=== PATIENT | female | born 1960 | race Caucasian/White ===

== ENCOUNTER 2019-03-14 16:14 | Emergency (ER) | payer OTHER, SELFPAY ==
[2019-03-14 16:19] VITALS: BP 170/97; PULSE 80; RESP 14; TEMP 37.1; O2SAT 97
--- NOTE | 2019-03-14 16:20 | W.ED.GENAD ---
Discharge Plan Disposition Patient Disposition: HOME Condition: Stable Discharge Details Chief Complaint: Laceration Clinical Impression: Laceration of left leg Primary Care Provider: China Gatica ED Provider: Elif Cortez Home Meds and New Rx's Prescriptions: No Action No Known Home Meds RF: 0 Discharge Instructions Instructions: Laceration (ED) Additional Instructions: Keep wound clean, dry, covered. Keep current dressing on for the next 24 hours. After that, may shower and wash with soap. Do not soak/submerge. Monitor for signs of infection inculding redness, warmth, drainage, increased pain, fevers/chills. If these or other new/worsening symptoms arise please seek care urgently once again. Return in 10 days for suture removal. Referrals: China Gatica [Primary Care Provider] - Discharge Data Discharge Date/Time-TO BE ENTERED AT DEPARTURE: 03/14/19 17:32 Medical Decision Making Patient 58-year-old female presenting today for evaluation of laceration she sustained to the right medial calf. Sustained this was working with metal tracey the accident cut her leg. Patient is not up-to-date on tetanus, will update this today. She denies any altered sensation. Denies other injuries from the incident. Patient has a 4.5 cm laceration into the subcutaneous tissue, curvilinear in appearance. Discussed versus benefits as well as expected procedural steps of closure. She voiced understanding and wished to proceed . Procedure note: Using standard sterile technique, the wound was first anesthetized 1% lidocaine plain. 5 cc was used. The sufficiently anesthetized the area. The wound was then copiously irrigated with sterile saline and cleansed with chlorhexidine. Wound was explored to base in a bloodless field no foreign body debris noted. Attention was then turned to closure. #7 simple interrupted stitches were placed using 5-0 nylon. Patient tolerated this well and a dry sterile bandage was placed over this. Patient I discussed wound care in depth. We discussed signs symptoms of infection when to seek care urgently once again. She will return in 10 days for suture removal. We discussed activities to avoid. All of her questions and concerns were addressed and she is agreement this plan. Tetanus was updated today. HPI General Mode of arrival: ambulatory. Date/Time Provider Initiated Documentation: 03/14/19 16:20. Limitations to Documentation: no limitations. Information obtained by: patient and RN notes reviewed. History of Present Illness 58 year old F presents to the emergency department with the chief complaint of laceration right medial calf, described as severe, with intensity rated at 9 (9.5). Quality is described as burning, and is localized to the right and lower extremity. Patient reports no radiation. Patient started experiencing this minute(s) and it has been constant. No relieving factors improve symptom(s), No exacerbating factors reported . Patient notes no other symptoms.. Patient did receive the following treatments prior to arrival, none Related Data Home Medications Medication Instructions Recorded Confirmed Unknown [No Known Home Meds] 03/14/19 03/14/19 Allergies Allergy/AdvReac Type Severity Reaction Status Date / Time No Known Allergies Allergy Unverified 03/14/19 16:23 Review of Systems Constitutional Reports as per HPI, Denies chills and Denies fever(s) Musculoskeletal Reports as per HPI Integumentary/Breasts Reports as per HPI Neurologic Reports as per HPI, Denies sensory deficit and Denies paresthesias PFS Social History Smoking/Tobacco Use Status: Never Drug use: Never Substance use type: does not use Do you feel safe at home: Yes Do you feel safe in your relationship?: Yes Exam Const General: cooperative, healthy appearing, comfortable, no acute distress and well developed Nutritional Appearance: average body habitus and well nourished Orientation: alert and awake Resp Effort & Inspection: normal respiratory effort, able to speak in complete sentences and no respiratory distress Cardio Rate: regular rate Rhythm: regular rhythm Skin Trauma: laceration (left medial knee 4.5 curvilinear laceration into subcutaneous) Neuro General: alert and awake Cognition: normal cognition Speech: speech normal Gait: normal gait Sensory Exam: no sensory deficits noted Extrem Left lower extremity: full ROM, normal capillary refill and no joint enlargement; abnormal to inspection (laceration as above) and no edema Psych Appearance: grossly normal and well kempt Mental Status: mental status grossly normal Speech and Movement: speech and movement normal
--- NOTE | 2019-03-14 16:34 | ED.GENADUL_ITS ---
Discharge Plan Disposition Patient Disposition: HOME Condition: Stable Discharge Details Chief Complaint: Laceration Clinical Impression: Laceration of left leg Primary Care Provider: China Gatica ED Provider: Elif Cortez Home Meds and New Rx's Prescriptions: No Action No Known Home Meds RF: 0 Discharge Instructions Instructions: Laceration (ED) Additional Instructions: Keep wound clean, dry, covered. Keep current dressing on for the next 24 hours. After that, may shower and wash with soap. Do not soak/submerge. Monitor for signs of infection inculding redness, warmth, drainage, increased pain, fevers/chills. If these or other new/worsening symptoms arise please seek care urgently once again. Return in 10 days for suture removal. Referrals: China Gatica [Primary Care Provider] - Discharge Data Discharge Date/Time-TO BE ENTERED AT DEPARTURE: 03/14/19 17:32 Medical Decision Making Patient 58-year-old female presenting today for evaluation of laceration she sustained to the right medial calf. Sustained this was working with metal tracey the accident cut her leg. Patient is not up-to-date on tetanus, will update this today. She denies any altered sensation. Denies other injuries from the incident. Patient has a 4.5 cm laceration into the subcutaneous tissue, curvilinear in appearance. Discussed versus benefits as well as expected procedural steps of closure. She voiced understanding and wished to proceed . Procedure note: Using standard sterile technique, the wound was first anesthetized 1% lidocaine plain. 5 cc was used. The sufficiently anesthetized the area. The wound was then copiously irrigated with sterile saline and cleansed with chlorhexidine. Wound was explored to base in a bloodless field no foreign body debris noted. Attention was then turned to closure. #7 simple interrupted stitches were placed using 5-0 nylon. Patient tolerated this well and a dry sterile bandage was placed over this. Patient I discussed wound care in depth. We discussed signs symptoms of infection when to seek care urgently once again. She will return in 10 days for suture removal. We discussed activities to avoid. All of her questions and concerns were addressed and she is agreement this plan. Tetanus was updated today. HPI General Mode of arrival: ambulatory . Date/Time Provider Initiated Documentation: 03/14/19 16:20 . Limitations to Documentation: no limitations . Information obtained by: patient and RN notes reviewed . History of Present Ill pilo 58 year old F presents to the emergency department with the chief complaint of laceration right medial calf, described as severe, with intensity rated at 9 (9.5). Quality is described as burning, and is localized to the right and lower extremity. Patient reports no radiation. Patient started experiencing this minute(s) and it has been constant. No relieving factors improve symptom(s), No exacerbating factors reported . Patient notes no other symptoms.. Patient did receive the following treatments prior to arrival, none Related Data Home Medications Medication Instructions Recorded Confirmed Unknown [No Known Home Meds] 03/14/19 03/14/19 Allergies Allergy/AdvReac Type Severity Reaction Status Date / Time No Known Allergies Allergy Unverified 03/14/19 16:23 Review of Systems Constitutional Reports as per HPI, Denies chills and Denies fever(s) Musculoskeletal Reports as per HPI Integumentary/Breasts Reports as per HPI Neurologic Reports as per HPI, Denies sensory deficit and Denies paresthesias [facility] Social History Smoking/Tobacco Use Status: Never Drug use: Never Substance use type: does not use Do you feel safe at home: Yes Do you feel safe in your relationship?: Yes Exam Const General: cooperative, healthy appearing, comfortable, no acute distress and well developed Nutritional Appearance: average body habitus and well nourished Orientation: alert and awake Resp Effort & Inspection: normal respiratory effort, able to speak in complete sentences and no respiratory distress Cardio Rate: regular rate Rhythm: regular rhythm Skin Trauma: laceration (left medial knee 4.5 curvilinear laceration into subcutaneous) Neuro General: alert and awake Cognition: normal cognition Speech: speech normal Gait: normal gait Sensory Exam: no sensory deficits noted Extrem Left lower extremity: full ROM, normal capillary refill and no joint enlargement; abnormal to inspection (laceration as above) and no edema Psych Appearance: grossly normal and well kempt Mental Status: mental status grossly normal Speech and Movement: speech and movement normal
[2019-03-14 17:24] VITALS: BP 148/84; PULSE 86; RESP 12; TEMP 35.9; O2SAT 97
== END 2019-03-14 17:32 | disposition home or self-care (01) ==
PROVIDERS: Emergency Provider Physician Assistant; PCP Family Medicine
DX: S81.811A Laceration without foreign body, right lower leg, initial encounter (principal); W45.8XXA Other foreign body or object entering through skin, initial encounter
CPT/HCPCS: 12002; 90471

== ENCOUNTER 2019-03-24 10:14 | Emergency (ER) | payer OTHER, SELFPAY ==
--- NOTE | 2019-03-24 10:49 | ED.GENADUL_ITS ---
Discharge Plan Disposition Patient Disposition: HOME Discharge Details Clinical Impression: Encounter for removal of sutures Primary Care Provider: China Gatica ED Provider: El Kaufman Home Meds and New Rx's Prescriptions: No Action No Known Home Meds RF: 0 Discharge Instructions Instructions: Stitches Removal (ED) Additional Instructions: Return to the ER for any worsening or new concerning symptoms. Medical Decision Making 10:50 --58-year-old female who sustained laceration to her left lower leg, seen here at [facility] with primary closure on 03/14/2019, returns today for suture removal. Wound appears to be healed well with no signs of infection. Sutures removed by ROBERT Cortez without complication. Usual and customary discharge instructions were provided. HPI General Mode of arrival: ambulatory . Date/Time Provider Initiated Documentation: 03/24/19 10:43 . Limitations to Documentation: no limitations . Information obtained by: patient . HPI Narrative: 58-year-old female here for suture removal. Patient sustained laceration to her left lower leg and was seen here on 03/14/2019 and had sutures placed. Wound has been healing well with no signs of infection. Related Data Home Medications Medication Instructions Recorded Confirmed Unknown [No Known Home Meds] 03/14/19 03/14/19 Allergies Allergy/AdvReac Type Severity Reaction Status Date / Time No Known Allergies Allergy Unverified 03/14/19 16:23 General THA: 4 Review of Systems Integumentary/Breasts Reports as per HPI [facility] Social History Smoking/Tobacco Use Status: Never Drug use: Never Substance use type: does not use Do you feel safe at home: Yes Do you feel safe in your relationship?: Yes Exam Skin Wounds: wounds noted (Left leg laceration healed well with no erythema or signs of infection)
[2019-03-24 10:54] VITALS: BP 150/88; PULSE 65; RESP 16; TEMP 36.6; O2SAT 94
== END 2019-03-24 11:00 | disposition home or self-care (01) ==
PROVIDERS: Emergency Provider Student in an Organized Health Care Education/Training Program; PCP Family Medicine
DX: S81.812D Laceration without foreign body, left lower leg, subsequent encounter (principal); X58.XXXD Exposure to other specified factors, subsequent encounter; Z48.02 Encounter for removal of sutures

== ENCOUNTER 2024-10-07 01:34 | Outpatient (CLI) | payer OTHER, SELFPAY ==
--- NOTE | 2024-10-07 | DI.MRI_ITS ---
Exam(s) MR BRAIN WO EXAM: MR BRAIN WO CLINICAL HISTORY: Uncontrolled worsening MAIER, soft tissue mass over rt ear, TECHNIQUE: Multiplanar multisequence MRI of the brain was performed. COMPARISON: No exams were available for comparison FINDINGS: CEREBRAL PARENCHYMA: There is no evidence of intracranial hemorrhage, mass effect, or shift of midline structures. There are no extra-axial fluid collections. Ventricles are not enlarged or shifted. There is no significant focal signal abnormality in the cerebellar hemispheres nor within the viri, m idbrain, and thalami. There is no abnormal signal abnormality in the periventricular white matter. There is no significant focal signal abnormality evident on diffusion imaging to suggest acute ischem ic event. PITUITARY GLAND: No mass nor parasellar abnormality. No obvious abnormality in the cavernous sinuses. FLOW VOIDS: The expected flow void are noted. No evidence of obvious aneurysm nor obvious vascular ma lformation. PARANASAL SINUSES: The visualized paranasal sinuses appear unremarkable. No obvious finding ORBITS: No obvious findings. IMPRESSION: No significant intracranial findings on this noninfused MRI scan of the brain. DATA REPOSITORY:
== END 2024-10-07 01:54 ==
PROVIDERS: PCP Family Medicine; Visit Provider Family Medicine
DX: R51.9 Headache, unspecified (principal)
CPT/HCPCS: 70551